=== PATIENT | male | born 1965 | race Caucasian/White ===

== ENCOUNTER 2024-12-31 18:59 | Emergency (ER) | payer BC, SELFPAY ==
[2024-12-31 19:03] VITALS: BP 148/86
--- NOTE | 2024-12-31 19:25 | ED.GENMED ---
History of Present Illness
General
Chief Complaint: Exposure-Chemical
Source: patient
Exam Limitations: none
Time Seen by Provider: 12/31/24 19:17
History of Present Illness
History of Present Illness:
See MDM
Past History
Past History
ED Past Medical History: None
ED Past Surgical History: None
Social History
Tobacco: Former smoker
Alcohol: None
Phy Exam
Physical Exam
Physical Exam:
See MDM
Course
Orders/Labs/Results
Orders:
Orders
12/31/24 19:23
Dexamethasone Sod Phosphate [Decadron] 10 mg IV NOW STA
Guaifenesin/Codeine Solution [Robitussin AC] 10 ml PO NOW STA
Ipratropium/Albuterol Sulfate [Duoneb] 3 ml INH R NOW STA
CR Chest - 2 Views Urgent
Comment:
Reason For Exam: SOB and cough, chemical exposure
12/31/24 19:40
Complete Blood Count/With Diff Urgent
Comprehensive Metabolic Panel Urgent
Abnormal Lab Results
12/31/24
19:40
WBC 11.2 H 10^3/uL
(4.8-10.8)
MCH 31.7 H pg
(27.0-31.0)
MPV 10.5 H fL
(7.4-10.4)
Abs Immat Gran (auto) 0.1 H 10^3/uL
(0-0.05)
Absolute Neuts (auto) 7.4 H 10^3/uL
(1.4-6.5)
Absolute Monos (auto) 1.0 H 10^3/uL
(0.1-0.6)
BUN 21 H mg/dl
(9-20)
12/31/24 19:40
12/31/24 19:40
Vital Signs
Initial and Last Documented VS:
Initial Vital Signs
Temp Pulse Resp BP Pulse Ox
97.9 F 75 15 148/86 98
12/31/24 19:03 12/31/24 19:03 12/31/24 19:03 12/31/24 19:03 12/31/24 19:03
Last Documented Vital Signs
Temp Pulse Resp BP Pulse Ox
97.9 F 75 14 126/89 92
12/31/24 19:03 12/31/24 20:28 12/31/24 20:28 12/31/24 19:57 12/31/24 20:28
MDM/Problems Addressed
Differential Diagnosis Includes:
Note:
CHIEF COMPLAINT(S)
Shortness of breath and cough following chemical exposure.
HISTORY OF PRESENT ILLNESS
The patient is a 59-year-old male who presented after experiencing respiratory symptoms following exposure to chemical fumes. 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 He reports an
irritation in the lungs, stating, �my lungs feel damaged,� and he describes a persistent taste of the chemical. He has experienced coughing and some throat discomfort due to coughing. The patient admitted to lying down, causing his symptoms to
become more noticeable, including some wheeziness. He denies any significant medical history and is not currently taking any medications. He smokes cigarettes.
PHYSICAL EXAM
General: Alert, no acute distress.
Skin: Warm, dry.
Head: Normocephalic, atraumatic
Neck: Appears supple, trachea midline.
Eyes, Ears, Nose, Mouth, and Throat: Oral mucosa moist. Posterior pharynx mildly erythematous
Cardiovascular: No signs of cyanosis
Respiratory: Respirations are non-labored. Mild scattered wheeze throughout
Abdomen: Non-distended
Musculoskeletal: No deformities
Neurological: No focal neurological deficit observed.
Psychiatric: Cooperative, appropriate mood and affect.
PROBLEM LIST
Acute Respiratory irritation due to chemical exposure.
Suspected pneumonitis.
PLAN
1. Perform a chest X-ray to evaluate the extent of lung involvement.
2. Administer a breathing treatment to alleviate respiratory symptoms.
3. Initiate intravenous steroids to reduce inflammation in the lung tissue.
4. Conduct basic blood work to assess any potential systemic effects from chemical exposure.
5. Prescribe a cough medicine containing codeine to manage the cough.
DIFFERENTIAL DIAGNOSIS
The Differential Diagnosis includes, in no particular order and is not limited to:
1. Chemical pneumonitis
2. Reactive airway disease
3. Acute bronchitis
4. Upper respiratory infection
5. Asthma exacerbation
6. Chronic Obstructive Pulmonary Disease (COPD) exacerbation
7. Aspiration pneumonitis
8. Gastroesophageal reflux disease-related cough
9. Pulmonary edema
10. Viral pneumonia
SUMMARY OF ENCOUNTER
The patient, a 59-year-old male, presented to the emergency department with symptoms of shortness of breath and cough after exposure to chemical fumes from mixing chlorine with a [employer] subcontractor, resulting in chlorine gas exposure. The patient
reported lung irritation, persistent chemical taste, coughing, and throat discomfort. Physical examination noted slight wheezing and a 'rattley' sound on auscultation. Management in the emergency department included administering a breathing
treatment and intravenous steroids to alleviate symptoms and reduce lung inflammation. After reevaluation, the patients condition improved significantly.
DISPOSITION
Discharge
ASSESSMENT
Chemical pneumonitis secondary to chlorine gas exposure.
EMERGENCY TREATMENTS ADMINISTERED
Breathing treatment
Intravenous steroids
PLAN
- Discharge with instructions for strict return precautions.
- Prescribe a short-course inhaler and oral steroids to manage symptoms.
- Schedule an outpatient follow-up with pulmonology for further evaluation and monitoring.
INDEPENDENT REVIEW OF LABS AND INTERPRETATION OF TESTS
My independent interpretation of the chest x-ray is clear, with no acute findings noted.
PATIENT EDUCATION AND COUNSELING
The patient was advised about the risks associated with returning home after experiencing chemical pneumonitis and was informed about signs and symptoms that should prompt immediate return to the emergency department. The importance of follow-up
with a reconcilement clerk was emphasized to ensure proper recovery and management of lung health.
FOLLOW-UP INSTRUCTIONS
Please schedule an outpatient follow-up visit with pulmonology to ensure continued recovery and assessment of lung function.
MEDICATION RECONCILIATION
- Prescribe a short-course inhaler for symptom relief.
- Prescribe oral steroids to manage lung inflammation.
MEDICAL DECISION MAKING
- Number and Complexity of Problems Addressed: Acute Respiratory irritation due to chemical exposure, Suspected pneumonitis
- Data:
Category 1: Tests and documents:
My independent interpretation of the chest x-ray shows no acute findings.
- Risk:
Prescription medication management includes the use of inhalers and steroids for symptom relief and inflammation control.
DIAGNOSIS
- Chemical Pneumonitis (ICD-10: J68.4)
*Pulse Oximetry
SaO2: 98
Oxygen Mode of Delivery: Room air
Patient hypoxic: no
*Critical Care Note
Total Time (30-74mins, 75-104mins- exclusive of procedures): Not Applicable
ED Attending Note
-
Portions of this chart may have been created with voice recognition software.� Occasional wrong word or��sound alike� substitutions may have occurred due to the inherent limitations of voice recognition software.
Discharge Plan
Departure
Patient Disposition: Home (Routine Discharge)
Date of Disposition: 12/31/24
Time of Disposition: 20:48
Patient with high blood pressure during this ER visit?: No
Discharge Problem:
Acute chemical pneumonitis
Prescriptions:
New
prednisone 20 mg tablet
40 mg PO DAILY Qty: 10 0RF
albuterol sulfate 90 mcg/actuation HFA aerosol inhaler
2 puff inhalation Q6H PRN (Reason: shortness of breath or wheezing) Qty: 8.5 0RF
codeine-guaifenesin 10-100 mg/5 mL liquid
10 ml PO Q6H PRN (Reason: Cough) Qty: 120 0RF
Referrals:
Guadalupe Junior MD [Active, Pulmonary Medicine]
Vlad Zhu MD [Family Provider, Family Practice]
Activity Restrictions/Additional Instructions:
Please return for any worsening symptoms.
You may return at any time if you have further concerns.
Please follow up with your doctor at the first available appointment, preferably this week.
Please make an appointment see the reconcilement clerk.
Thank you for choosing [facility].
Interventions
Interventions:
*Risk Screen - Suicide Last Done: 12/31/24 19:03
*General Assessment Last Done: 12/31/24 19:03
*Neglect/Abuse Screening Last Done: 12/31/24 19:03
*ED COVID-19 Vaccine History Last Done: 12/31/24 19:03
ED- Pulmonary Assessment Last Done: 12/31/24 19:59
ED-Skin Assessment Last Done: 12/31/24 19:59
Discharge Date and Time
Print Language: NAMIBIAN
[2024-12-31] MEDS: ROBITUSSIN AC 10 ML PO (19:41)
[2024-12-31] MEDS: DECADRON 10 MG IV (19:46)
[2024-12-31 19:47] VITALS: BMI 33.4
[2024-12-31 19:53] LABS: Hematocrit 45.7 % (39.0-52.0); Hemoglobin 15.7 g/dL (13.0-18.0); Mean Corp Hgb Conc. 34.4 g/dL (33.0-37.0); Mean Corpuscular Volume 92.3 fL (80.0-94.0); Nucleated Red Blood Cells % 0 % (-); Platelet Count 161 10^3/uL (130-400); Red Cell Dist. Width 12.6 % (11.5-14.5)
[2024-12-31 19:57] VITALS: BP 126/89
[2024-12-31] MEDS: DUONEB 3 ML INH (19:59)
[2024-12-31 20:26] LABS: ALT (SGPT) 36 U/L (0-50); AST (SGOT) 32 U/L (17-59); Albumin 4.7 g/dl (3.5-5.0); Alkaline Phosphatase 68 U/L (38-126); Blood Urea Nitrogen 21 mg/dl (9-20); Calcium 9.3 mg/dl (8.4-10.2); Carbon Dioxide 28 mmol/L (22-30); Chloride 105 mmol/L (98-107); Estimated Creatinine Clearance > 125 ml/min; Glucose 93 mg/dl (70-99); Potassium 4.8 mmol/L (3.5-5.1); Sodium 137 mmol/L (135-145); Total Protein 7.1 g/dl (6.3-8.2); eGFR > 60.00
[2024-12-31 20:50] VITALS: BP 123/84
== END 2024-12-31 20:58 | disposition home or self-care (01) ==
LOC: EMR 18:59
PROVIDERS: EMERGENCY PHYSICIAN Student in an Organized Health Care Education/Training Program; FAMILY PHYSICIAN Family Medicine
DX: J68.0 Bronchitis and pneumonitis due to chemicals, gases, fumes and vapors (principal); Z77.098 Contact with and (suspected) exposure to other hazardous, chiefly nonmedicinal, chemicals; Z87.891 Personal history of nicotine dependence
CPT/HCPCS: 99283; 94640; 96374; 71046; 80053; 85025